=== PATIENT | female | born 1985 | race Two or more races ===

== ENCOUNTER 2024-07-09 18:32 | Emergency (ER) | payer MEDICAID ==
[~2024-07-09] VITALS: Ht 167.6 cm; Wt 75.0 kg
[2024-07-09 18:42] VITALS: BP 128/80; PULSE 68; RESP 16; TEMP 97.8; O2SAT 98
== END 2024-07-10 00:34 | disposition left against medical advice (07) ==
LOC: EMS 18:32 → EDBD 18:32 → EMS 07-10 00:34
DX: M54.6 Pain in thoracic spine (principal); Z53.21 Procedure and treatment not carried out due to patient leaving prior to being seen by health care provider